=== PATIENT | female | born 1965 | race Caucasian/White ===

== ENCOUNTER → 2017-01-30 | Day surgery (SDC) | payer BC ==
[2017-01-18 12:00] VITALS: BMI 34.7
[~2017-01-30] MED LIST: BUPIVACAINE HCL/PF 2.5 MG/ML - 30 ML VIAL IJ ONE; GUM MASTIC/STORAX/MSAL/ALCOHOL 1 DRP DROPSBTL MC ONE; LIDOCAINE 1%-EPI 1:100,000 30 ML MDV IJ ONE; THROMBIN (BOVINE) 5,000 UNIT VIAL TP ONE; methylPREDNISolone ACET (DEPO) 40 MG/1 ML VIAL ONE
[2017-01-30 10:00] VITALS: BP 124/65; PULSE 66; TEMP 98.3
== END | disposition home or self-care (01) ==
LOC: FASU 09:41
PROVIDERS: ATTEND Orthopaedic Surgery Orthopaedic Surgery of the Spine
PROC: 01NB0ZZ Release Lumbar Nerve, Open Approach (ICD-10-PCS; principal; 2017-01-30)
DX: M48.06 Spinal stenosis, lumbar region (principal); M48.07 Spinal stenosis, lumbosacral region; Z53.8 Procedure and treatment not carried out for other reasons
CPT/HCPCS: 84703

== ENCOUNTER 2017-02-02 06:46 | Day surgery (SDC) | payer BC ==
[2017-01-31 14:16] VITALS: BMI 34.7
[2017-02-02] MEDS ORDERED: oxyCODONE HCL 10 MG SUSTAINED ACTING TABLET PO STA (07:01)
[2017-02-02] MEDS ORDERED: CEFAZOLIN 2 GM in DEXTROSE 5%-WATER - 100 ML IVPB ONE (07:01)
--- NOTE | 2017-02-02 07:39 | HP ---
History & Physical Update - History History: No Change - Physical Physical: No Change - Assessment Assessment: No Change - Plan Plan: No Change (This is my first time meeting the patient. I have informed her that I will be assisting Dr. Sesay with today's case. She is fine with it.)
[2017-02-02] MEDS ORDERED: BUPIVACAINE HCL/PF 0.5% (5MG/ML) 10 ML VIAL ONE (07:42)
[2017-02-02] MEDS ORDERED: MIDAZOLAM HCL 2 MG/2 ML SINGLE DOSE VIAL ONE ×3 (08:16→09:55)
[2017-02-02] MEDS ORDERED: ceFAZolin SODIUM 1 GM VIAL ONE (08:57)
[2017-02-02] MEDS ORDERED: LIDOCAINE 1%/EPI 1:100000 (50 ML MULTI DOSE VIAL) INF ONE (09:01)
[2017-02-02] MEDS ORDERED: ONDANSETRON 4 MG/2 ML VIAL IVPUSH PRN (10:20)
[2017-02-02] MEDS ORDERED: oxyCODONE HCL 5 MG TABLET PO PRN (10:20)
[2017-02-02] MEDS ORDERED: LACTATED RINGERS SOLUTION 1,000 ML IV SCH (10:30)
[2017-02-02] MEDS ORDERED: ACETAMINOPHEN INJECTION 100 ML IVPB ONE (10:41)
[2017-02-02] MEDS ORDERED: methylPREDNISolone ACET (DEPO) 40 MG/1 ML VIAL IM ONE (10:48)
[2017-02-02] MEDS ORDERED: BUPIVACAINE HCL/PF 0.25% (2.5MG/ML) 10 ML VIAL IJ ONE (10:49)
[2017-02-02] MEDS ORDERED: THROMBIN (BOVINE) 5,000 UNIT VIAL TP ONE (10:49)
--- NOTE | 2017-02-02 11:41 | OP ---
Operative Note - Note: Operative Date: 02/02/17 Pre-Operative Diagnosis: Spinal stenosis with radiculopathy Operation: L4-S1 laminectomy, repair dural tear Post-Operative Diagnosis: Same as Pre-op Surgeon: Noe Sesay [employer]creation Director: Channing Conti Anesthesiologist/STUDIO DESIGNER: Carmen Oconnor Anesthesia: Spinal Specimens Removed: None. Estimated Blood Loss (mls): 20 Fluid Volume Replaced (mls): 1,200 Operative Report Dictated: Yes
--- NOTE | 2017-02-02 11:42 | SURG ---
Surgery Outreach Clinician Note Outreach Clinician: Channing Conti PA-C Date of Service: 02/02/17 Diagnosis: Spinal stenosis, lumbar radiculopathy Procedure: L4-S1 laminectomy, repair dural tear I was present for the entirety of the operative procedure. For further detail, please refer to operative report. Visit type - Case Type Case Type: Scheduled Admission - New patient This patient is new to me today: Yes Date on this admission: 02/02/17
--- NOTE | 2017-02-02 12:17 | OP ---
DATE OF OPERATION: 02/02/2017 PREOPERATIVE DIAGNOSIS: Spinal stenosis L4-L5, L5-S1. POSTOPERATIVE DIAGNOSIS: Spinal stenosis L4-L5, L5-S1. PROCEDURE PERFORMED: Laminectomy L4-L5, L5-S1. SURGEON: Noe Sesay MD SURGICAL ATTENDANT: ROMERO Olvera ESTIMATED BLOOD LOSS: 50 mL. IV FLUIDS: Per Anesthesia. ANESTHESIA: Spinal. COMPLICATIONS: Drill tear repaired with watertight closure. DISPOSITION: The patient was brought to the PACU in stable condition. INDICATIONS FOR SURGERY: The patient is a 51-year-old female who has been suffering from pain from her back down the legs. X-rays and MRI were completed, which noted that she had spinal stenosis at L4-L5, L5-S1. She had gone through an exhaustive course of treatment for this, which included medications, physical therapy as well as injections. Unfortunately, her pain continued to persist despite all this. At this point, risks, benefits, and alternatives were discussed, and the patient consented to surgery. DESCRIPTION OF PROCEDURE: The patient was brought to the operating room by the Anesthesia staff. After appropriate patient identification was performed, spinal anesthesia was given. She was placed prone onto the Mois[place] frame with all areas and bony prominences well padded at this time. Two needles were placed into her back to krystle off the L4 and S1 space. An x-ray was taken to confirm this was correct. The needle was removed, and 10 mL of lidocaine with epinephrine was injected into her back at this time. Her back was prepped and draped in a sterile manner. At this point, a time-out was completed. An incision was made from the top of L4 down to the bottom of S1. Dissection was carried down to the fascia. Fascia was split open at this time, and retractor was then placed in. A spinal needle was placed onto the L4 lamina. An x-ray was taken to confirm this was correct. Needle was removed. Interspinous ligament at L4-L5 and L5-S1 was removed. The spinous process at L5 was removed. A bur was used to remove the lamina. While burring, a small tear of the dura was noted. We continued with the decompression. Once the decompression was performed, the dural tear was visualized. It was closed with 5-0 Prolene suture with watertight closure. The remaining part of the decompression was performed. By the end of the procedure, the L5 and S1 nerve roots appeared to be well decompressed. All bleeding was well controlled at this time. Steri-Strips was placed over the nerve root. FloSeal was placed over that. The fascia was closed with a No. 1 Vicryl suture. The subcutaneous tissue was closed with 2-0 Vicryl suture. The skin was closed with 3-0 Monocryl suture. Dermabond was applied. Steri-Strips were applied. A sterile dressing was applied. The patient was placed supine on the OR bed and brought to the PACU in stable condition. NOE SESAY M.D. KALYN/[id number]
[2017-02-02] MEDS ORDERED: oxyCODONE HCL 5 MG TABLET ONE ×2 (12:23→12:59)
[2017-02-02] MEDS ORDERED: ONDANSETRON *ODT* 4 MG TABLET ONE (13:59)
[2017-02-02 16:29] VITALS: BP 110/66; PULSE 53; TEMP 98.1
== END 2017-02-02 14:30 | disposition home or self-care (01) ==
LOC: FASU 06:46
PROVIDERS: ATTEND Orthopaedic Surgery Orthopaedic Surgery of the Spine
PROC: 01NB0ZZ Release Lumbar Nerve, Open Approach (ICD-10-PCS; principal; 2017-02-02 08:15)
DX: M48.06 Spinal stenosis, lumbar region (principal); M48.07 Spinal stenosis, lumbosacral region
CPT/HCPCS: 72100-TC; 76000-TC; 94760